=== PATIENT | female | born 1955 | race Caucasian/White ===

== ENCOUNTER → 2017-06-02 | Outpatient (CLI) | payer MEDICARE, OTHER ==
--- NOTE | 2017-06-02 19:20 | RADIOLOGY REPORT (SQ) ---
EXAM DESCRIPTION: MRI CERVICAL SPINE WITHOUT COMPLETED DATE/TIME: 06/02/2017 6:12 pm REASON FOR STUDY: Cervicalgia, Pain in left shoulder M54.2 CERVICALGIA M25.512 PAIN IN LEFT SHOULD ER COMPARISON: None. TECHNIQUE: Sagittal and Axial imaging includes T1, T2, STIR and gradient echo sequences. LIMITATIONS: None. FINDINGS: ALIGNMENT: Normal. VERTEBRAE: Intact. BONE MARROW: Normal. No marrow replacement or reactive changes. DISCS: Disc heights are fairly well-maintained. Mild disc space narrowing is present at C5-C6 and C6 -C7. HARDWARE: None in the spine. CORD AND BASE OF BRAIN: Normal in size and signal intensity. SOFT TISSUES: No soft tissue masses. C1-C2: No significant spinal stenosis. C2-C3: No significant spinal stenosis or exit foraminal stenosis. C3-C4: There is asymmetric narrowing of the left neural foramina this appears to be secondary to oste ophytic spurring. No central stenosis. The right neural foramina is patent. C4-C5: No central stenosis. There is narrowing of the left neural foramina again this is secondary t o osteophytic spurring and facet arthropathy. Right neural foramina is patent. C5-C6: There is mild central stenosis due to disc/ osteophyte complex. There is bilateral foraminal narrowing. This is symmetric. There is facet arthropathy. C6-C7: There is mild central stenosis due to disc/ osteophyte complex. There is asymmetric narrowing of the left neural foramina due to osteophytic spurring. C7-T1: No significant spinal stenosis or exit foraminal stenosis. UPPER THORACIC: Incompletely imaged. No significant spinal stenosis or exit foraminal stenosis. OTHER: No other significant finding. IMPRESSION: 1. Multilevel spondylosis. 2. There is asymmetric narrowing of the left neural foramina at C3-4 secondary to osteophytic spurri ng. 3. Narrowing of the left neural foramina at C4-5 secondary to osteophytic spurring and facet arthrop athy. 4. Mild central stenosis is C5-C6 with bilateral foraminal stenosis. 5. Mild central stenosis at C6-C7 with asymmetric narrowing of the left neural foramina. COMMENT: None. TECHNICAL DOCUMENTATION: JOB ID: [id number]- All Rights Reserved
== END ==
LOC: RAD 17:27
PROVIDERS: ATTEND Internal Medicine
DX: M54.2 Cervicalgia (principal); M25.512 Pain in left shoulder; M47.892 Other spondylosis, cervical region
CPT/HCPCS: 72141

== ENCOUNTER 2018-11-07 08:18 | Day surgery (SDC) | payer MEDICARE, BC ==
[~2018-11-07 08:18] MED LIST: BUPIVACAINE HCL 0.75% INJ/PF (7.5 MG/1 ML) 10 ML SDV OD PRN; CHONDR SU A NA/HYALUR INTRAOC KIT (SURGICARE) ONE; EPINEPHRINE INJ/PF 1 MG/1 ML AMPULE ONE; KETOROLAC TROMETHAMINE 0.45% 4 DROP/0.4 ML DROPERETTE OD PRN; LIDOCAINE 1% INJ-PF (10 MG/ML) 30 ML SDV ONE; LIDOCAINE 4% INJ/PF (40 MG/ML) 5 ML AMPUL OD PRN
[2018-11-07] MEDS: TETRACAINE HCL 0.5% OPH SOLN 0.6 ML DROPERETTE OD PRN ×2 (08:59→09:30)
[2018-11-07] MEDS: BESIFLOXACIN HCL 0.6% OPH SUSP 5 ML BOTTLE OD PRN ×4 (09:00→10:14)
[2018-11-07] MEDS: TROPICAMIDE 1% OPH SOLN 3 ML OD PRN ×3 (09:00→09:28)
[2018-11-07] MEDS: CYCLOPENTOLATE 0.2%/PHENYLEPHRINE 1% OPH SOLN 2 ML OD PRN ×3 (09:00→09:28)
[2018-11-07] MEDS ORDERED: MIDAZOLAM 2 MG/2 ML INJ ONE (09:33)
[2018-11-07] MEDS ORDERED: FENTANYL CITRATE INJ/PF 100 MCG/2 ML AMPUL ONE (09:33)
[2018-11-07] MEDS: DORZOLAMIDE HCL 2%/TIMOLOL MALEAT 0.5% OPH SOLN 10 ML OD PRN ×2 (10:14)
--- NOTE | 2018-11-07 14:07 | [facility] DISCHARGE SUMMARY E ---
[facility] Discharge Summary NAME: KECIA STAHL AGE: 63Y ADMITTED: 11/07/2018 DISCHARGED: 11/07/2018 FINAL DIAGNOSIS: Cataract, right eye. HOSPITAL COURSE: The patient is a 63-year-old who underwent uneventful cataract extraction with intraocular lens implant, right eye, on 11/07/2018. She will be discharged to home. She was instructed to resume preoperative medications; to take Tylenol as needed for discomfort; to keep her eye shielded; to use Durezol, Prolensa, and Besivance at 3 p.m. and 8 p.m.; and to follow up in my office in 1 day. DICTATING PHYSICIAN: SEAN MARTIN M.D. [id number] PHY#: [id number] ID: [id number] JOB#: [id number] ACCT: [id number] cc:SEAN MARTIN M.D. >
--- NOTE | 2018-11-07 14:07 | [facility] OPERATIVE REPORT E ---
[facility] Operative Report NAME: KECIA STAHL AGE: 63Y DATE OF SURGERY: 11/07/2018 ROOM: PREOPERATIVE DIAGNOSIS: Cataract, right eye. POSTOPERATIVE DIAGNOSIS: Cataract, right eye. PROCEDURE PERFORMED: Phacoemulsification with posterior chamber intraocular lens, right eye. SURGEON: SEAN MARTIN M.D. ANESTHESIA: Topical with MAC. INDICATIONS FOR SURGERY: Difficulty driving and reading. PROCEDURE: The patient was brought to the operating room and placed on the operative table. Following tetracaine drops, topical anesthesia was administered. This consisted of instrument wipe pledgets soaked in a solution of 4% Xylocaine mixed with 0.75% Marcaine in a 1:2 ratio. A 2 x 1 cm pledget was placed in the superior fornix. A 1 x 1 cm pledget was placed in the inferior fornix. The eye was patched shut for 5 minutes. The patch was removed. The eye was sterilely prepped and draped in the usual manner. Lid speculum was placed in the eye. The pledgets were removed and 4-0 black silk sutures were placed around the superior and the inferior rectus muscles to be used as traction. A conjunctival peritomy was made at the 10 o'clock position. Hemostasis was obtained with bipolar cautery. A posterior limbal groove was created using a crescent knife and dissected anteriorly towards the cornea. A sharp point blade was used to create a paracentesis site at the 2 o'clock position. A 2.4 mm keratome was used to enter the anterior chamber through the groove. Viscoelastic was injected into the anterior chamber. An anterior capsulotomy was performed using Utrata forceps in a capsulorrhexis fashion. Hydrodissection and hydrodelineation were performed. Phacoemulsification was performed in ddasbg-dce-kxcokns technique. Total phaco time was 3.55 CDE. Following this, the I/A unit was used to remove residual cortex. Viscoelastic was injected into the capsular bag. Intraocular lens model ZCB00, 28 diopters, serial number [id number], was placed in the capsular bag. The I/A unit was used to remove residual viscoelastic. The wound was seen to be watertight under high and low pressure, and no sutures were placed. The intraocular lens was well centered. The pressure was adjusted in the eye to normal pressure. The 4-0 black silk sutures and lid speculum were removed. The eye was shielded after Besivance drops were placed. The patient tolerated the procedure well and was sent to the recovery room in good condition. DICTATING PHYSICIAN: SEAN MARTIN M.D. [id number] PHY#: [id number] ID: [id number] JOB#: [id number] ACCT: [id number] cc:SEAN MARTIN M.D. >
== END 2018-11-07 11:05 | disposition home or self-care (01) ==
LOC: SC 08:18
PROVIDERS: ATTEND Ophthalmology
DX: H25.813 Combined forms of age-related cataract, bilateral (principal); H04.033 Chronic enlargement of bilateral lacrimal glands; H47.333 Pseudopapilledema of optic disc, bilateral; H31.8 Other specified disorders of choroid; E11.9 Type 2 diabetes mellitus without complications; M35.01 Sjogren syndrome with keratoconjunctivitis; E03.9 Hypothyroidism, unspecified; E78.00 Pure hypercholesterolemia, unspecified; M06.9 Rheumatoid arthritis, unspecified; J44.9 Chronic obstructive pulmonary disease, unspecified; F17.210 Nicotine dependence, cigarettes, uncomplicated; I11.9 Hypertensive heart disease without heart failure; M35.00 Sjogren syndrome, unspecified; G43.909 Migraine, unspecified, not intractable, without status migrainosus; Z88.5 Allergy status to narcotic agent; Z88.8 Allergy status to other drugs, medicaments and biological substances; Z79.899 Other long term (current) drug therapy; Z79.82 Long term (current) use of aspirin; Z79.84 Long term (current) use of oral hypoglycemic drugs; Z79.51 Long term (current) use of inhaled steroids
CPT/HCPCS: 66984; 82962; V2632; J2250; J3490 ×4; A9270; J0171; J3010; 142

== ENCOUNTER 2018-12-07 08:12 | Day surgery (SDC) | payer MEDICARE, BC ==
[~2018-12-07 08:12] MED LIST changes: -BUPIVACAINE HCL 0.75% INJ/PF (7.5 MG/1 ML) 10 ML SDV OD PRN; -CHONDR SU A NA/HYALUR INTRAOC KIT (SURGICARE) ONE; -EPINEPHRINE INJ/PF 1 MG/1 ML AMPULE ONE; -KETOROLAC TROMETHAMINE 0.45% 4 DROP/0.4 ML DROPERETTE OD PRN; +KETOROLAC TROMETHAMINE 0.45% 4 DROP/0.4 ML DROPERETTE OS PRN; -LIDOCAINE 1% INJ-PF (10 MG/ML) 30 ML SDV ONE; -LIDOCAINE 4% INJ/PF (40 MG/ML) 5 ML AMPUL OD PRN
[2018-12-07] MEDS: LIDOCAINE 4% INJ/PF (40 MG/ML) 5 ML AMPUL OS PRN ×3 (09:41→10:41)
[2018-12-07] MEDS: BUPIVACAINE HCL 0.75% INJ/PF (7.5 MG/1 ML) 10 ML SDV OS PRN ×3 (09:41→10:41)
[2018-12-07] MEDS: TROPICAMIDE 1% OPH SOLN 3 ML OS PRN ×3 (09:43→10:03)
[2018-12-07] MEDS: CYCLOPENTOLATE 0.2%/PHENYLEPHRINE 1% OPH SOLN 2 ML OS PRN ×3 (09:43→10:03)
[2018-12-07] MEDS: BESIFLOXACIN HCL 0.6% OPH SUSP 5 ML BOTTLE OS PRN ×4 (09:43→11:14)
[2018-12-07] MEDS: TETRACAINE HCL 0.5% OPH SOLN 0.6 ML DROPERETTE OS PRN ×2 (09:44→10:03)
[2018-12-07] MEDS ORDERED: FENTANYL CITRATE INJ/PF 100 MCG/2 ML AMPUL ONE (10:27)
[2018-12-07] MEDS ORDERED: MIDAZOLAM 2 MG/2 ML INJ ONE (10:27)
[2018-12-07] MEDS: LIDOCAINE 1% INJ-PF (10 MG/ML) 30 ML SDV ONE ×2 (10:56)
[2018-12-07] MEDS: CHONDR SU A NA/HYALUR INTRAOC KIT (SURGICARE) ONE ×2 (10:56)
[2018-12-07] MEDS: EPINEPHRINE INJ/PF 1 MG/1 ML AMPULE ONE ×2 (10:56)
[2018-12-07] MEDS: DORZOLAMIDE HCL 2%/TIMOLOL MALEAT 0.5% OPH SOLN 10 ML OS PRN ×2 (11:14)
--- NOTE | 2018-12-08 07:23 | [facility] OPERATIVE REPORT E ---
[facility] Operative Report NAME: KECIA STAHL AGE: 63Y DATE OF SURGERY: 12/07/2018 ROOM: PREOPERATIVE DIAGNOSIS: Cataract, left eye. POSTOPERATIVE DIAGNOSIS: Cataract, left eye. PROCEDURE PERFORMED: Phacoemulsification with posterior chamber intraocular lens, left eye. SURGEON: SEAN MARTIN M.D. ANESTHESIA: Topical with MAC. 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 PROCEDURE: The patient was brought to the Operating Room and placed on the operative table. Following tetracaine drops, topical anesthesia was administered. This consisted of instrument wipe pledgets soaked in a solution of 4% Xylocaine mixed with 0.75% Marcaine in a 1:2 ratio. A 2 x 1 cm pledget was placed in the superior fornix. A 1 x 1 cm pledget was placed in the inferior fornix. The eye was patched shut for 5 minutes. The patch was removed. The eye was sterilely prepped and draped in the usual manner. Lid speculum was placed in the eye. The pledgets were removed. 4-0 black silk sutures were placed around the superior and the inferior rectus muscles to be used as traction. A conjunctival peritomy was made at the 10 o'clock position. Hemostasis was obtained with bipolar cautery. A posterior limbal groove was created using a crescent knife and dissected anteriorly towards the cornea. A sharp point blade was used to create a paracentesis site at the 2 o'clock position. A 2.4 mm keratome was used to enter the anterior chamber through the groove. Viscoelastic was injected into the anterior chamber. An anterior capsulotomy was performed using Utrata forceps in a capsulorrhexis fashion. Hydrodissection and hydrodelineation were performed. Phacoemulsification was performed in maejfe-eqr-csqnylp technique. A total of 3.38 CDE phaco time was used. Following this, the I/A unit was used to remove residual cortex. Viscoelastic was injected into the capsular bag. Intraocular lens model ZCB00, 26.0 diopters, was placed in the capsular bag. The I/A unit was used to remove residual viscoelastic. The wound was seen to be watertight under high and low pressure, and no sutures were placed. The intraocular lens was well centered. The pressure was adjusted in the eye to normal pressure. The 4-0 black silk sutures and lid speculum were removed. The eye was shielded after Besivance drops were placed. The patient tolerated the procedure well and was sent to the Recovery Room in good condition. DICTATING PHYSICIAN: SEAN MARTIN M.D. [id number] PHY#: [id number] ID: [id number] JOB#: [id number] ACCT: [id number] cc:SEAN MARTIN M.D. > MTDD
--- NOTE | 2018-12-08 07:26 | [facility] DISCHARGE SUMMARY E ---
[facility] Discharge Summary NAME: KECIA STAHL AGE: 63Y ADMITTED: 12/07/2018 DISCHARGED: 12/07/2018 HOSPITAL COURSE: The patient is a 63-year-old lady who underwent uneventful cataract extraction with intraocular lens implant left eye on 12/07/2018. She will be discharged to home. She is instructed to resume preoperative medications, to take Tylenol as needed for discomfort, to keep her eye shielded, to use Besivance, Prolensa, and Durezol at 3 p.m. and 8 p.m., and to follow up in my office in 1 day. DICTATING PHYSICIAN: SEAN MARTIN M.D. [id number] PHY#: [id number] ID: [id number] JOB#: [id number] ACCT: [id number] cc:SEAN MARTIN M.D. >
== END 2018-12-07 12:05 | disposition home or self-care (01) ==
LOC: SC 08:12
PROVIDERS: ATTEND Ophthalmology
DX: H25.812 Combined forms of age-related cataract, left eye (principal); Z96.1 Presence of intraocular lens; F17.210 Nicotine dependence, cigarettes, uncomplicated; I10 Essential (primary) hypertension; M19.90 Unspecified osteoarthritis, unspecified site; Z88.5 Allergy status to narcotic agent; Z87.892 Personal history of anaphylaxis
CPT/HCPCS: 66984; 82962; V2632; J2250; J3490 ×4; A9270; J0171; J3010; 142

== ENCOUNTER 2020-05-14 18:10 | Observation (INO) | payer MEDICARE, BC ==
[2020-05-14] MEDS ORDERED: MAGNESIUM SULFATE/D5W 1 GM/100 ML RTUPB IV ONE (22:25)
[2020-05-14] MEDS ORDERED: IPRATROPIUM/ALBUTEROL 0.5-2.5 MG/3 ML AMPUL NEB ONE (22:25)
[2020-05-14] MEDS ORDERED: METHYLPREDNISOLONE INJ 125 MG/2 ML SDV IV ONE (22:25)
--- NOTE | 2020-05-14 22:27 | ER Document Report ---
ED Respiratory Problem - General Chief Complaint: Shortness Of Breath Stated Complaint: SHORTNESS OF BREATH,COUGH FEVER Time Seen by Provider: 05/14/20 22:13 Notes: Patient is a 64-year-old female that comes emergency department for chief compla int of worsening cough and shortness of breath. She reports wheezing that is only slightly helped by her home albuterol inhaler. She has a history of COPD, occasionally smokes, has a home albuterol but not a nebulizer. She is not on home oxygen. She denies recent sick contacts, recent travel, fever. She reports pain with cough but denies chest pain otherwise. Denies sore throat, abdominal pain, vomiting. She does report productive cough with greenish sputum. She has been coughing and having worsening symptoms for about 4 days or so now. She states she gets frequent pneumonia and she feels like she has pneumonia. TRAVEL OUTSIDE OF THE [place] IN LAST 30 DAYS: No - Related Data Allergies/Adverse Reactions: atorvastatin [From Lipitor] Allergy (Severe, Verified 12/07/18 10:12) LIVER ENZYMES ELEVATE codeine [Codeine] Allergy (Severe, Verified 12/07/18 10:12) Anaphylaxis ketorolac tromethamine [From Toradol] Allergy (Severe, Verified 12/07/18 10:10) Anaphylaxis hydrocodone bitartrate [From Vicodin] Allergy (Mild, Verified 12/07/18 10:12) ITCHING, NAUSEA oxycodone HCl [From Percocet] Allergy (Mild, Verified 12/07/18 10:12) ITCHING, NAUSEA propoxyphene napsylate [From Darvocet-N 100] Allergy (Mild, Verified 12/07/18 10:12) ITCHING, NAUSEA Past Medical History - General Information source: Patient - Social History Smoking Status: Current Some Day Smoker Frequency of alcohol use: None Drug Abuse: None Lives with: Family Family History: Reviewed & Not Pertinent Patient has homicidal ideation: No - Past Medical History Cardiac Medical History: Reports: Hx Hypertension Denies: Hx Heart Attack Pulmonary Medical History: Reports: Hx Pneumonia Denies: Hx Asthma Neurological Medical History: Reports: Hx Migraine. Denies: Hx Cerebrovascular Accident, Hx Seizures GI Medical History: Denies: Hx Hepatitis, Hx Hiatal Hernia, Hx Ulcer Psychiatric Medical History: Reports: Hx Depression Infectious Medical History: Denies: Hx Hepatitis Past Surgical History: Reports: Hx Cardiac Catheterization - X2 STENTS NOT DUE TO [place], Hx Cardiac Surgery - 2 stents, Hx Hysterectomy, Hx Orthopedic Surgery - BACK, Hx Tonsillectomy. Denies: Hx Mastectomy, Hx Open Heart Surgery, Hx Pacemaker - Immunizations Hx Diphtheria, Pertussis, Tetanus Vaccination: - Unknown Review of Systems - Review of Systems Constitutional: No symptoms reported EENT: No symptoms reported Cardiovascular: No symptoms reported Respiratory: See HPI Gastrointestinal: No symptoms reported Genitourinary: No symptoms reported Female Genitourinary: No symptoms reported Musculoskeletal: No symptoms reported Skin: No symptoms reported Hematologic/Lymphatic: No symptoms reported Neurological/Psychological: No symptoms reported Physical Exam - Vital signs Vitals: Temp Pulse Resp BP Pulse Ox 98.9 F 75 18 116/71 95 05/14/20 21:09 05/14/20 21:09 05/14/20 21:09 05/14/20 21:05/14/20 21:09 - Notes Notes: GENERAL: Alert, interacts well. HEAD: Normocephalic, atraumatic. EYES: Pupils equal, round, and reactive to light. Extraocular movements intact. ENT: Oral mucosa moist, tongue midline. Oropharynx unremarkable. Airway patent. NECK: Full range of motion. Supple. Trachea midline. No lymphadenopathy. LUNGS: Frequent nonproductive cough, expiratory wheezes throughout, borderline tachypnea. Can still speak in full sentences. No rales or rhonchi noted. HEART: Regular rate and rhythm. No murmur ABDOMEN: Soft, non-tender. Non-distended. EXTREMITIES: Moves all 4 extremities spontaneously. No edema, normal radial and dorsalis pedis pulses bilaterally. No cyanosis. BACK: no cervical, thoracic, lumbar midline tenderness. No saddle anesthesia, normal distal neurovascular exam. Moves all extremities in full range of motion. NEUROLOGICAL: Alert and oriented x3. Normal speech. Cranial nerves II through XII grossly intact. Strength 5/5 in all extremities. PSYCH: Normal affect, normal mood. SKIN: Warm, dry, normal turgor. No rashes or lesions noted. Course - Re-evaluation Re-evalutation: Patient with frequent cough, expiratory wheezes, borderline tachypnea. She was given duo nebs, magnesium, Solu-Medrol. On repeat exam she still has expiratory wheezes but is significantly improved, she was given another DuoNeb and lidocaine nebulizer for her persistent cough, afterwards coughing resolved. Patient states she feels much improved. Patient appears improved on evaluation. Patient occasionally has borderline hypoxia at rest. Venous blood gas unremarkable, chemistry unremarkable, CBC unremarkable. Troponin negative. Chest x-ray unremarkable. Discussed with patient, patient is hoping to go home. We attempted to ambulate the patient with pulse oxygen saturation testing, she quickly desaturated down to approximately 86-87% on room air and became very tachypneic with difficulty ambulating. Patient is also wheezing some on this evaluation. Because of this desaturation with her COPD exacerbation discussed with patient and recommended hospitalization. Patient is in full agreement. Discussed with Dr. Durand, hospitalist, patient accepted to medical floor observation. - Vital Signs Vital signs: Temp Pulse Resp BP Pulse Ox 98.2 F 115 H 18 149/71 H 94 05/15/20 03:33 05/15/20 03:33 05/15/20 03:33 05/15/20 03:33 05/15/20 03:33 - Laboratory Result Diagrams: 05/14/20 23:01 05/14/20 23:01 Laboratory results interpreted by me: 05/14/20 05/14/20 23:01 23:01 WBC 11.2 H Eos % (Auto) 12.4 H Absolute Eos (auto) 1.4 H Sodium 135.5 L Glucose 119 H Discharge - Discharge Clinical Impression: Productive cough, Wheezing, COPD exacerbation, Hypoxia Condition: Stable Disposition: ADMITTED OBSERVATION Admitting Provider: Kizzy (Hospitalist) Unit Admitted: Medical Floor
[2020-05-14 23:23] LABS: ABSOLUTE BASOPHILS # (AUTO) 0.1 10^3/uL (0.0-0.2); ABSOLUTE EOSINOPHILS # (AUTO) 1.4 10^3/uL (0.0-0.6); ABSOLUTE LYMPHOCYTES (AUTO) 3.1 10^3/uL (0.5-4.7); ABSOLUTE NEUT (AUTO) 5.5 10^3/uL (1.7-8.2); BASOPHILS % (AUTO) 1.2 % (0-2); EOSINOPHILS % (AUTO) 12.4 % (0-6); HEMATOCRIT 44.6 % (36.0-47.0); HEMOGLOBIN 15.2 g/dL (12.0-15.5); LYMPHOCYTES % (AUTO) 28.1 % (13-45); MEAN CORPUSCULAR VOLUME 88 fl (80-97); MONOCYTES % (AUTO) 9.3 % (3-13); PLATELET COUNT 316 10^3/uL (150-450); RED BLOOD COUNT 5.05 10^6/uL (3.72-5.28); TOTAL CELLS COUNTED % (AUTO) 100 %; VENOUS BLOOD BASE EXCESS 3.8 mmol/L; VENOUS BLOOD PCO2 55.3 mmHg (35-63); VENOUS BLOOD PH 7.37 (7.30-7.42); WHITE BLOOD COUNT 11.2 10^3/uL (4.0-10.5)
--- NOTE | 2020-05-14 23:27 | RADIOLOGY REPORT (SQ) ---
EXAM DESCRIPTION: XR CHEST 1 VIEW COMPLETED DATE/TME: 05/14/2020 22:25 CLINICAL INDICATION: 64-year-old female with shortness of breath and productive cough. TECHNIQUE: Single view, AP portable chest was obtained. COMPARISON: 02/13/2016. FINDINGS: Stable cardiac and mediastinal silhouette. Heart size is normal. Tortuous atherosclerotic thoracic aorta. Lungs are clear without focal opacity, pneumothorax or pleural effusions. The visualized bones are within normal limits. IMPRESSION: No acute cardiopulmonary abnormalities.
[2020-05-14 23:55] LABS: ALBUMIN 4.7 g/dL (3.5-5.0); ALKALINE PHOSPHATASE 95 U/L (38-126); ANION GAP 8 (5-19); ASPARTATE AMINO TRANSFERASE 26 U/L (14-36); BILIRUBIN,DIRECT 0.1 mg/dL (0.0-0.4); BILIRUBIN,TOTAL 0.4 mg/dL (0.2-1.3); BLOOD UREA NITROGEN 15 mg/dL (7-20); CARBON DIOXIDE 30 mmol/L (22-30); CHLORIDE 98 mmol/L (98-107); GLUCOSE 119 mg/dL (75-110); POTASSIUM 4.4 mmol/L (3.6-5.0); TOTAL PROTEIN 7.7 g/dL (6.3-8.2)
[2020-05-15] MEDS ORDERED: IPRATROPIUM/ALBUTEROL 0.5-2.5 MG/3 ML AMPUL NEB ONE (00:27)
[2020-05-15] MEDS ORDERED: LIDOCAINE 1% INJ-PF (10 MG/ML) 30 ML SDV NEB ONE (01:01)
[2020-05-15] MEDS ORDERED: MAGNESIUM HYDROXIDE SUSP 30 ML UDCUP PO PRN (02:57)
[2020-05-15] MEDS ORDERED: MAG HYDROX/AL HYDROX/SIMETH SUSP 30 ML UDCUP PO PRN (02:57)
[2020-05-15] MEDS ORDERED: LEVALBUTEROL HCL NEB 0.63 MG/3 ML AMPUL NEB PRN (02:57)
[2020-05-15] MEDS ORDERED: PROMETHAZINE HCL INJ 25 MG/1 ML VIAL IV PRN ×2 (02:57→07:30)
[2020-05-15] MEDS ORDERED: MORPHINE SULFATE 10 MG/ML INJ IV PRN ×4 (03:02→07:27)
[2020-05-15] MEDS ORDERED: GLUCAGON,HUMAN RECOMB 1 MG INJ IM PRN ×2 (03:02→08:17)
[2020-05-15] MEDS ORDERED: NICOTINE 21 MG/24 HR PATCH.TD24 TD PRN (03:02)
[2020-05-15] MEDS ORDERED: ACETAMINOPHEN 325 MG TABLET PO PRN (03:02)
[2020-05-15] MEDS ORDERED: INSULIN REG, HUMAN 100 UNIT/ML 3 ML VIAL (PYX) SUBCUT PRN (03:02)
[2020-05-15] MEDS ORDERED: LORAZEPAM INJ 2 MG/1 ML VIAL IV PRN (03:02)
[2020-05-15] MEDS ORDERED: DEXTROSE 40% GEL 15 GM TUBE PO PRN ×4 (03:02→08:17)
[2020-05-15] MEDS ORDERED: HYDRALAZINE HCL INJ/PF 20 MG/1 ML SDV IV PRN (03:02)
[2020-05-15] MEDS ORDERED: GUAIFENESIN SYRP 200 MG/10 ML UDC PO PRN (03:02)
[2020-05-15] MEDS ORDERED: DEXTROSE 50%-WATER 25 GM/50 ML DISP.SYRIN IV PRN ×4 (03:02→08:17)
[2020-05-15] MEDS ORDERED: MELATONIN 5 MG TABLET PO PRN (03:02)
--- NOTE | 2020-05-15 04:21 | PDOC H&P ---
History of Present Illness Admission Date/PCP: 05/15/2020 02:31 EMRE OWUSU MD Patient complains of: Dyspnea History of Present Illness: KECIA STALH is a 64 year old female who presents the emergency room with a 4-day history of dyspnea. She admits gradually worsening dyspnea over the last 4 days, becoming severe on the evening of 05/15/2020. Her dyspnea has been constant, accompanied by a productive cough (greenish mucus), accompanied by increased wheezing and worsened with any exertion. She denies other associated or accompanying signs and symptoms. She admits that with her coughing paroxysms she occasionally develops a sharp pain in the side of her chest. She has been using an albuterol inhaler at home with decreasing improvement after use, over the course of the last 4 days. She admits prior similar episodes with previous pneumonias and exacerbations of her COPD. She has not identified any additional aggravating or ameliorating factors for her dyspnea. In the emergency room she was found to have acute respiratory failure with hypoxia requiring supplemental oxygen per nasal cannula to maintain an adequate O2 saturation. She was treated aggressively in the ER but continued to require oxygen and therefore was admitted to the hospital for further evaluation and treatment on observation status. Past Medical History Cardiac Medical History: Reports: Coronary Artery Disease, Hyperlipidema, Hypertension Denies: Atrial Fibrillation, Congestive Heart Failure, Myocardial Infarction Pulmonary Medical History: Reports: Bronchitis, Chronic Obstructive Pulmonary Disease (COPD), Pneumonia Denies: Asthma, Respiratory Failure EENT Medical History: Reports: Cataracts Denies: Ears - Hearing aids Neurological Medical History: Reports: Migraine Denies: Hemorrhagic CVA, Ischemic CVA, Seizures Endocrine Medical History: Reports: Diabetes Mellitus Type 2, Hypothyroidism Denies: Diabetes Mellitus Type 1, Hyperthyroidism Renal/ Medical History: Denies: Chronic Kidney Disease, Nephrolithiasis Malignancy Medical History: Reports: None GI Medical History: Denies: Cirrhosis, Crohn's Disease, Hepatitis, Hiatal Hernia, Peptic Ulcer Disease, Ulcerative Colitis Musculoskeltal Medical History: Reports: Arthritis - Rheumatoid arthritis, Other - Sjogren's syndrome, degenerative disc disease Denies: Gout Skin Medical History: Denies: Eczema, Psoriasis Psychiatric Medical History: Reports: Depression, Tobacco Dependency Denies: Alcohol Dependency, Substance Abuse Traumatic Medical History: Reports: None Hematology: Denies: Anemia, Bleeding Tendencies Infectious Medical History: Reports: None Past Surgical History Past Surgical History: Reports: Cardiac Catheterization, Coronary Stent, Hysterectomy, Orthopedic Surgery - Back surgery, Tonsillectomy, Other - Bilateral cataract surgery Social History Information Source: Patient Lives with: Spouse/Significant other Smoking Status: Current Some Day Smoker Electronic Cigarette use?: No Frequency of Alcohol Use: None Hx Recreational Drug Use: No Drugs: None Hx Prescription Drug Abuse: No - Advance Directive Resuscitation Status: Full Code Surrogate healthcare decision maker:: Heather Gill Family History Family History: CAD, DM, Other - Macular degeneration, glaucoma Parental Family History Reviewed: Yes Children Family History Reviewed: No Sibling(s) Family History Reviewed.: Yes Medication/Allergy Home Medications: Amitriptyline HCl 25 mg PO QHS 02/13/16 Aspirin 325 mg PO DAILY 02/13/16 Gabapentin 100 mg PO BID 02/13/16 Hydromorphone HCl [Dilaudid] 4 mg PO Q4H PRN 02/13/16 Lisinopril/Hydrochlorothiazide [Lisinopril-Hctz 10-12.5 mg Tab] 1 tab PO DAILY 02/13/16 Lovastatin 40 mg PO QHS 02/13/16 Metformin HCl [Metformin HCl ER] 1,000 mg PO BID 02/13/16 Metoprolol Succinate 50 mg PO DAILY 02/13/16 Tiotropium [place] [Spiriva Handihaler 18 mcg/dose (30 Dose)] 1 puff IH DAILY 02/13/16 Venlafaxine HCl ER [Effexor Xr 75 mg Cap.sr] 150 mg PO DAILY 02/13/16 Besifloxacin HCl [Besivance 0.6% Oph Susp 5 ml] 1 drop OP .3 & 8 PM TODAY PRN 11/03/18 Bromfenac Sodium [Prolensa] 1 drop OP .3 & 8 PM TODAY PRN 11/03/18 Difluprednate [Durezol] 1 drop OP .3 & 8 PM TODAY PRN 11/03/18 Levalbuterol HCl [Xopenex Neb 0.63 mg/3 ml Ampul] 0.63 mg NEB PRN PRN 11/03/18 Levothyroxine Sodium [Synthroid] 125 mcg PO DAILY 11/03/18 Zoster Vaccine Live/Pf [Zostavax Vial] 19,400 unit SQ ASDIR PRN 11/03/18 Allergies/Adverse Reactions: atorvastatin [From Lipitor] Allergy (Severe, Verified 12/07/18 10:12) LIVER ENZYMES ELEVATE codeine [Codeine] Allergy (Severe, Verified 12/07/18 10:12) Anaphylaxis ketorolac tromethamine [From Toradol] Allergy (Severe, Verified 12/07/18 10:10) Anaphylaxis hydrocodone bitartrate [From Vicodin] Allergy (Mild, Verified 12/07/18 10:12) ITCHING, NAUSEA oxycodone HCl [From Percocet] Allergy (Mild, Verified 12/07/18 10:12) ITCHING, NAUSEA propoxyphene napsylate [From Darvocet-N 100] Allergy (Mild, Verified 12/07/18 10:12) ITCHING, NAUSEA Review of Systems Constitutional: ABSENT: chills, fever(s) Eyes: ABSENT: visual disturbances, other - Eye pain Ears: ABSENT: hearing changes, other - Ear pain Nose, Mouth, and Throat: ABSENT: headache(s), sore throat Cardiovascular: PRESENT: as per HPI, chest pain, dyspnea on exertion. ABSENT: palpitations Respiratory: PRESENT: as per HPI, cough, dyspnea, sputum. ABSENT: hemoptysis Gastrointestinal: ABSENT: abdominal pain, constipation, diarrhea, nausea, vomiting Genitourinary: ABSENT: dysuria, hematuria Musculoskeletal: ABSENT: back pain, joint swelling Integumentary: ABSENT: pruritus, rash Neurological: ABSENT: confusion, convulsions, focal weakness, memory loss, syncope Psychiatric: ABSENT: anxiety, depression Endocrine: ABSENT: cold intolerance, heat intolerance, polydipsia, polyphagia, polyuria Hematologic/Lymphatic: ABSENT: easy bleeding, easy bruising Allergic/Immunologic: ABSENT: seasonal rhinorrhea Physical Exam Vital Signs: Temp Pulse Resp BP Pulse Ox 98.9 F 84 17 135/98 H 93 05/14/20 22:19 05/14/20 21:49 05/14/20 23:00 05/14/20 23:01 05/14/20 21:49 Intake & Output 05/13/20 05/14/20 05/15/20 23:59 23:59 23:59 Intake Total 100 Balance 100 General appearance: PRESENT: no acute distress, cooperative, other - On supplemental oxygen via nasal cannula at the time of my evaluation Head exam: PRESENT: atraumatic, normocephalic Eye exam: PRESENT: conjunctiva pink. ABSENT: conjunctival injection, scleral icterus Ear exam: PRESENT: normal external ear exam - . Probably bring the patient upstairs. ABSENT: bleeding, drainage Mouth exam: PRESENT: dry mucosa - None admitted at midnight, neck supple Neck exam: ABSENT: thyromegaly, tracheal deviation Respiratory exam: PRESENT: decreased breath sounds - Minimally decreased breath sounds throughout all gudino, prolonged expiratory phas, symmetrical, wheezes - Mildly prolonged expiratory phase noted throughout all gudino moderate expiratory wheezes noted throughout all gudino Cardiovascular exam: PRESENT: RRR. ABSENT: clicks, gallop, rubs Pulses: PRESENT: normal radial pulses, normal dorsalis pedis pul Vascular exam: PRESENT: normal capillary refill. ABSENT: pallor GI/Abdominal exam: PRESENT: normal bowel sounds, soft Rectal exam: PRESENT: deferred Extremities exam: ABSENT: joint swelling, pedal edema Musculoskeletal exam: PRESENT: other - Moderate kyphosis of the thoracic spine is noted. ABSENT: deformity, dislocation Neurological exam: PRESENT: alert, oriented to person, oriented to place, oriented to time, oriented to situation, CN II-XII grossly intact. ABSENT: motor sensory deficit Psychiatric exam: PRESENT: appropriate affect, normal mood Skin exam: PRESENT: dry, intact, warm. ABSENT: jaundice, rash, urticaria Results Laboratory Results: 05/14/20 23:01 05/14/20 23:01 05/14/20 05/14/20 05/14/20 23:01 23:01 23:01 WBC 11.2 H RBC 5.05 Hgb 15.2 Hct 44.6 MCV 88 MCH 30.0 MCHC 34.0 RDW 13.0 Plt Count 316 Seg Neutrophils % 49.0 VBG pH 7.37 VBG pCO2 55.3 VBG HCO3 31.0 VBG Base Excess 3.8 Sodium 135.5 L Potassium 4.4 Chloride 98 Carbon Dioxide 30 Anion Gap 8 BUN 15 Creatinine 0.66 Est GFR ( Amer) > 60 Glucose 119 H Calcium 10.0 Total Bilirubin 0.4 AST 26 Alkaline Phosphatase 95 Total Protein 7.7 Albumin 4.7 05/14/20 23:01 Troponin I < 0.012 Impressions: Chest X-Ray 05/14/20 22:25 IMPRESSION: No acute cardiopulmonary abnormalities. Assessment and Plan - Diagnosis (1) COPD exacerbation Is this a current diagnosis for this admission?: Yes (2) Acute respiratory failure with hypoxia Is this a current diagnosis for this admission?: Yes (3) Hypertension Qualifiers: Hypertension type: essential hypertension Qualified Code(s): I10 - Essential (primary) hypertension Is this a current diagnosis for this admission?: Yes (4) Diabetes mellitus type 2 in obese Is this a current diagnosis for this admission?: Yes (5) Coronary artery disease Qualifiers: Coronary Disease-Associated Artery/Lesion type: redding artery [place] vs. transplanted heart: redding heart Associated angina: without angina Qualified Code(s): I25.10 - Atherosclerotic heart disease of redding coronary artery without angina pectoris Is this a current diagnosis for this admission?: Yes (6) Rheumatoid arthritis Qualifiers: Rheumatoid arthritis location: unspecified site Rheumatoid factor presence: unspecified presence Qualified Code(s): M06.9 - Rheumatoid arthritis, unspecified Is this a current diagnosis for this admission?: Yes (7) Hypothyroidism Qualifiers: Hypothyroidism type: unspecified Qualified Code(s): E03.9 - Hypothyroidism, unspecified Is this a current diagnosis for this admission?: Yes (8) Tobacco use disorder Is this a current diagnosis for this admission?: Yes - Plan Summary Summary: Patient will be admitted to observation status on the medical floor where she will receive routine supportive and symptomatic cares. She will be treated with aggressive pulmonary toilet utilizing nebulized Xopenex, Atrovent, Mucomyst and Pulmicort. She will receive supplemental oxygen as needed to maintain adequate oxygen saturation level including the use of noninvasive airway pressure support devices such as BiPAP if required. She will be continued on a short burst course of IV Solu-Medrol that was initiated in the emergency room. She will receive Zithromax 500 mg p.o. daily. She will use morphine sulfate 2 to 4 mg IV every 2 hours as needed for pain. She received Ativan 1 mg IV every 4 hours as needed for anxiety or restlessness. She will be placed on a cardiac and diabetic restricted diet. She will be continued on her usual home medications, as appropriate, once her medication list has been verified reconciled. Before meals and at bedtime Accu-Cheks will be performed with sliding scale insulin to cover hyperglycemia and a hypoglycemic protocol in place. Smoking cessation is advised and counseled briefly at the bedside. A nicotine replacement patch is available for the patient's use, if desired. - Time Time Spent with patient: 15-24 minutes Smoking Cessation Education: 3 to 10 minutes Medications reviewed and adjusted accordingly: Yes Anticipated discharge: Home - Inpatient Certification Based on my medical assessment, after consideration of the patient's comorbidities, presenting symptoms, or acuity I expect that the services needed warrant INPATIENT care.: No I certify that my determination is in accordance with my understanding of Medicare's requirements for reasonable and necessary INPATIENT services [42 CFR 412.3e].: No
[2020-05-15] MEDS: METHYLPREDNISOLONE INJ 40 MG/1 ML SDV IV SCH ×2 (04:23→09:19)
[2020-05-15] MEDS: HEPARIN SOD (PORCINE) 5,000 UNIT/ML 1 ML VIAL SUBCUT SCH ×2 (06:30→13:30)
--- NOTE | 2020-05-15 07:42 | EKG REPORT ---
SEVERITY:- OTHERWISE NORMAL ECG - SINUS RHYTHM LOW VOLTAGE IN FRONTAL LEADS : Confirmed by: Riccardo Ortega MD 15-May-2020 07:41:13
[2020-05-15] MEDS ORDERED: LEVALBUTEROL HCL NEB 1.25 MG/3 ML AMPUL NEB SCH (08:00)
[2020-05-15] MEDS ORDERED: IPRATROPIUM BROMIDE 0.02% NEB 0.5 MG/2.5 ML AMPUL NEB SCH (08:00)
[2020-05-15] MEDS ORDERED: BUDESONIDE NEB 0.5 MG/2 ML AMPUL NEB SCH (08:00)
[2020-05-15] MEDS ORDERED: ACETYLCYSTEINE 20% SOLN 800 MG/4 ML VIAL.NEB NEB SCH (08:00)
[2020-05-15] MEDS: INSULIN LISPRO 100 UNIT/ML 3 ML VIAL SUBCUT SCH ×2 (08:50→12:26)
[2020-05-15] MEDS ORDERED: FAMOTIDINE 20 MG TABLET PO SCH (10:00)
[2020-05-15] MEDS ORDERED: DOCUSATE SODIUM 100 MG CAPSULE PO SCH (10:00)
[2020-05-15] MEDS ORDERED: AZITHROMYCIN 250 MG TABLET PO SCH (10:00)
[2020-05-15] MEDS ORDERED: UMECLIDINIUM BROMIDE 62.5 MCG/DOSE IH SCH (10:00)
[2020-05-15] MEDS ORDERED: FLUTICASONE/VILANTEROL 200-25 MCG/DOSE IH SCH (10:00)
[2020-05-15] MEDS ORDERED: INSULIN LISPRO 100 UNIT/ML 3 ML VIAL SUBCUT SCH (11:00)
[2020-05-15 13:02] VITALS: BP 149/71
--- NOTE | 2020-05-15 19:00 | PDOC DISCHARGE SUMMARY ---
Impression - Admit/DC Date/PCP Admission Date/Primary Care Provider: 05/15/20 02:33 EMRE OWUSU MD Discharge Date: 05/15/20 - Discharge Diagnosis (1) Acute respiratory failure with hypoxia Is this a current diagnosis for this admission?: Yes (2) COPD exacerbation Is this a current diagnosis for this admission?: Yes (3) Coronary artery disease Is this a current diagnosis for this admission?: Yes (4) Diabetes mellitus type 2 in obese Is this a current diagnosis for this admission?: Yes (5) Hypertension Is this a current diagnosis for this admission?: Yes (6) Hypothyroidism Is this a current diagnosis for this admission?: Yes (7) Rheumatoid arthritis Is this a current diagnosis for this admission?: Yes (8) Tobacco use disorder Is this a current diagnosis for this admission?: Yes - Additional Information Resuscitation Status: Full Code Discharge Diet: Cardiac, Diabetic Discharge Activity: Activity As Tolerated, Balance Activity w/Rest Referrals: [facility] [Outside] ([facility] due to suspected covid virus. Upon D/C patient should self quarantine until cleared by Health Dept.) EMRE OWUSU MD [Primary Care Provider] - (Patient to schedule own appt. after [facility] clears patient.) Prescriptions: Nebulizer [Aeroeclipse II] 1 each MC ASDIR PRN #1 each PRN Reason: Prednisone [Deltasone 20 mg Tablet] 60 mg PO DAILY #15 tablet Ipratropium/Albuterol Sulfate [Duoneb 3 ml Ampul] 3 ml NEB RTQ6HP PRN #120 vial.neb PRN Reason: Nicotine [Nicoderm 21 mg/24 Hr Transderm Patch] 1 each TD DAILYP PRN #30 patch.td24 PRN Reason: Benzonatate [Tessalon Perles 100 mg Capsule] 100 mg PO Q8HP PRN #40 capsule PRN Reason: Azithromycin [Zithromax 250 mg Tablet] 250 mg PO DAILY #4 tablet Home Medications: Amitriptyline HCl 50 mg PO QHS 02/13/16 Aspirin 325 mg PO QPM 02/13/16 Hydromorphone HCl [Dilaudid] 4 mg PO Q12 02/13/16 Metoprolol Succinate 50 mg PO DAILY 03/18/16 Tiotropium [place] [Spiriva Handihaler 18 mcg/dose (30 Dose)] 1 puff IH DAILY 02/13/16 Venlafaxine HCl ER [Effexor Xr 75 mg Cap.sr] 150 mg PO QHS 02/13/16 Acetaminophen [Tylenol 325 mg Tablet] 650 mg PO Q4HP PRN tablet 05/15/20 Albuterol Sulfate [Ventolin Hfa 8 gm Mdi (1 Mdi/ER Disp)] 2 puff IH Q4HP PRN 05/15/20 Azithromycin [Zithromax 250 mg Tablet] 250 mg PO DAILY #4 tablet 05/15/20 Benzonatate [Tessalon Perles 100 mg Capsule] 100 mg PO Q8HP PRN #40 capsule 05/15/20 Hydromorphone HCl [Dilaudid] 4 mg PO DAILY@1400 PRN 05/15/20 Hydroxyzine HCl [Atarax 10 mg Tablet] 25 mg PO QAMP PRN 05/15/20 Ipratropium/Albuterol Sulfate [Duoneb 3 ml Ampul] 3 ml NEB RTQ6HP PRN #120 vial.neb 05/15/20 Levothyroxine Sodium 137 mcg PO Q6AM 05/15/20 Lisinopril/Hydrochlorothiazide [Lisinopril-Hctz 10-12.5 mg Tab] 1 tab PO DAILY 05/15/20 Metformin HCl [Metformin HCl ER] 500 mg PO BID 05/15/20 Nebulizer [Aeroeclipse II] 1 each MC ASDIR PRN #1 each 05/15/20 Nicotine [Nicoderm 21 mg/24 Hr Transderm Patch] 1 each TD DAILYP PRN #30 patch.td24 05/15/20 Prednisone [Deltasone 20 mg Tablet] 60 mg PO DAILY #15 tablet 05/15/20 Rosuvastatin Calcium [Crestor] 10 mg PO QHS 05/15/20 Vitamin B Complex [Balanced B-50] 1 tab PO QHS 05/15/20 History of Present Illiness History of Present Illness: Per H&P by Dr. Durand: KECIA STAHL is a 64 year old female who presents the emergency room with a 4-day history of dyspnea. She admits gradually worsening dyspnea over the last 4 days, becoming severe on the evening of 05/15/2020. Her dyspnea has been constant, accompanied by a productive cough (greenish mucus), accompanied by increased wheezing and worsened with any exertion. She denies other associated or accompanying signs and symptoms. She admits that with her coughing paroxysms she occasionally develops a sharp pain in the side of her chest. She has been using an albuterol inhaler at home with decreasing improvement after use, over the course of the last 4 days. She admits prior similar episodes with previous pneumonias and exacerbations of her COPD. She has not identified any additional aggravating or ameliorating factors for her dyspnea. In the emergency room she was found to have acute respiratory failure with hypoxia requiring supplemental oxygen per nasal cannula to maintain an adequate O2 saturation. She was treated aggressively in the ER but continued to require oxygen and therefore was admitted to the hospital for further evaluation and treatment on observation status. Hospital Course Hospital Course: The patient was admitted to the medical floor. She was supported with supplemental oxygen. She was provided scheduled and as needed nebulizer treatments, Mucinex, and Solu-Medrol. Her symptoms rapidly improved and within a few hours that she was maintaining oxygen saturations while ambulatory on room air and speaking in full sentences without increased work of breathing. Patient requested to discharge home. She was provided the option of continued stay/management as she had been in house ~10 hours. She stated that she felt comfortable returning to home and confirmed her desire to discharge today. As the patient had clear lung sounds and was fully conversational with normal SpO2, she is discharged to home in stable condition. Prescriptions for a nebulizer machine, DuoNeb's, Prednisone, Tessalon Perles, Z- William, and NicoDerm patches were sent to her pharmacy of choice. She was encouraged to return to the emergency department for any concerning symptoms. Physical Exam Vital Signs: Temp Pulse Resp BP Pulse Ox 97.7 F 99 16 149/71 H 97 05/15/20 13:01 05/15/20 13:01 05/15/20 13:01 05/15/20 13:01 05/15/20 13:01 Intake & Output 05/14/20 05/15/20 05/16/20 06:59 06:59 06:59 Intake Total 580 720 Balance 580 720 Weight 78.1 kg General appearance: PRESENT: no acute distress, cooperative, well-developed, well-nourished - Overweight Head exam: PRESENT: atraumatic, normocephalic Eye exam: PRESENT: conjunctiva pink, EOMI, PERRLA. ABSENT: scleral icterus Mouth exam: PRESENT: moist, tongue midline Respiratory exam: PRESENT: clear to auscultation [place], symmetrical, unlabored, other - Ambulatory on room air. ABSENT: rales, rhonchi, wheezes Cardiovascular exam: PRESENT: RRR. ABSENT: diastolic murmur, rubs, systolic murmur Pulses: PRESENT: normal dorsalis pedis pul Vascular exam: PRESENT: normal capillary refill Extremities exam: PRESENT: full ROM. ABSENT: calf tenderness, clubbing, pedal edema Musculoskeletal exam: PRESENT: ambulatory Neurological exam: PRESENT: alert, awake, oriented to person, oriented to place, oriented to time, oriented to situation, CN II-XII grossly intact. ABSENT: motor sensory deficit Psychiatric exam: PRESENT: appropriate affect, normal mood. ABSENT: homicidal ideation, suicidal ideation Skin exam: PRESENT: dry, intact, warm. ABSENT: cyanosis, rash Results Laboratory Results: WBC 11.2 10^3/uL (4.0-10.5) H 05/14/20 23:01 RBC 5.05 10^6/uL (3.72-5.28) 05/14/20 23:01 Hgb 15.2 g/dL (12.0-15.5) 05/14/20 23: Hct 44.6 % (36.0-47.0) 05/14/20 23: MCV 88 fl (80-97) 05/14/20 23:01 MCH 30.0 pg (27.0-33.4) 05/14/20 23: MCHC 34.0 g/dL (32.0-36.0) 05/14/20 23:01 RDW 13.0 % (11.5-14.0) 05/14/20 23: Plt Count 316 10^3/uL (150-450) 05/14/20 23:01 Lymph % (Auto) 28.1 % (13-45) 05/14/20 23:01 [place] % (Auto) 9.3 % (3-13) 05/14/20 23:01 Eos % (Auto) 12.4 % (0-6) H 05/14/20 23: Baso % (Auto) 1.2 % (0-2) 05/14/20 23:01 Absolute Neuts (auto) 5.5 10^3/uL (1.7-8.2) 05/14/20 23: Absolute Lymphs (auto) 3.1 10^3/uL (0.5-4.7) 05/14/20 23:01 Absolute Monos (auto) 1.0 10^3/uL (0.1-1.4) 05/14/20 23: Absolute Eos (auto) 1.4 10^3/uL (0.0-0.6) H 05/14/20 23:01 Absolute Basos (auto) 0.1 10^3/uL (0.0-0.2) 05/14/20 23: Seg Neutrophils % 49.0 % (42-78) 05/14/20 23: VBG pH 7.37 (7.30-7.42) 05/14/20 23: VBG pCO2 55.3 mmHg (35-63) 05/14/20 23: VBG HCO3 31.0 mmol/L (20-32) 05/14/20 23: VBG Base Excess 3.8 mmol/L 05/14/20 23: Sodium 135.5 mmol/L (137-145) L 05/14/20 23: Potassium 4.4 mmol/L (3.6-5.0) 05/14/20 23: Chloride 98 mmol/L (98-107) 05/14/20 23: Carbon Dioxide 30 mmol/L (22-30) 05/14/20 23: Anion Gap 8 (5-19) 05/14/20 23: BUN 15 mg/dL (7-20) 05/14/20 23: Creatinine 0.66 mg/dL (0.52-1.25) 05/14/20 23: Est GFR ( Amer) > 60 (>60) 05/14/20 23: Est GFR (MDRD) Non-Af > 60 (>60) 05/14/20 23:01 Glucose 119 mg/dL (75-110) H 05/14/20 23:01 POC Glucose 220 mg/dL (70-110) H 05/15/20 11:47 Calcium 10.0 mg/dL (8.4-10.2) 05/14/20 23:01 Total Bilirubin 0.4 mg/dL (0.2-1.3) 05/14/20 23:01 Direct Bilirubin 0.1 mg/dL (0.0-0.4) 05/14/20 23:01 Neonat Total Bilirubin Not Reportable 05/14/20 23:01 Neonat Direct Bilirubin Not Reportable 05/14/20 23:01 Neonat Indirect Bili Not Reportable 05/14/20 23:01 AST 26 U/L (14-36) 05/14/20 23:01 ALT 23 U/L (<35) 05/14/20 23:01 Alkaline Phosphatase 95 U/L (38-126) 05/14/20 23:01 Troponin I < 0.012 ng/mL 05/14/20 23:01 Total Protein 7.7 g/dL (6.3-8.2) 05/14/20 23:01 Albumin 4.7 g/dL (3.5-5.0) 05/14/20 23:01 Free T3 pg/mL 3.44 pg/mL (2.77-5.27) 05/14/20 23:01 COVID-19 Source Cancelled 05/15/20 01:11 COVID-19 ([facility]) Cancelled 05/15/20 01:11 05/14/20 23:01 Troponin I < 0.012 Impressions: Chest X-Ray 05/14/20 22:25 IMPRESSION: No acute cardiopulmonary abnormalities. Plan Plan of Treatment: Patient is discharged home in stable condition. She is advised follow-up with primary care provider within 1 week. She is instructed to stop smoking. She is educated on continuous nebulizer treatments. She is encouraged to take her medications as prescribed. Return to emergency department as needed for concern symptoms. Time Spent: Greater than 30 Minutes Stroke Is this a Stroke Patient?: No Acute Heart Failure - Is this a Heart Failure Patient?: No
== END 2020-05-15 14:14 | disposition home health service (06) ==
LOC: ER 18:10 → EH 05-15 02:33 → 5 05-15 03:25
PROVIDERS: ADMIT Emergency Medicine; ATTEND Registered Nurse
DX: J96.01 Acute respiratory failure with hypoxia (principal); J44.1 Chronic obstructive pulmonary disease with (acute) exacerbation; I25.10 Atherosclerotic heart disease of native coronary artery without angina pectoris; E11.9 Type 2 diabetes mellitus without complications; E66.9 Obesity, unspecified; I10 Essential (primary) hypertension; E03.9 Hypothyroidism, unspecified; M06.9 Rheumatoid arthritis, unspecified; M35.00 Sjogren syndrome, unspecified; E78.5 Hyperlipidemia, unspecified; F17.200 Nicotine dependence, unspecified, uncomplicated; M40.294 Other kyphosis, thoracic region; Z03.818 Encounter for observation for suspected exposure to other biological agents ruled out; Z87.01 Personal history of pneumonia (recurrent); Z79.899 Other long term (current) drug therapy; Z79.82 Long term (current) use of aspirin; Z95.5 Presence of coronary angioplasty implant and graft; Z82.49 Family history of ischemic heart disease and other diseases of the circulatory system; Z79.890 Hormone replacement therapy
CPT/HCPCS: 93005; 94640 ×2; 99285; 96375; 96365; 36415 ×2; 82962; 85025; 80053; 84484; 84481; 82803; 71045; 93010; G0378; U0003; J1644; A9270 ×6; J3490 ×6; J2920; J2930; J3475; C9803; 87635; J1815; J7620